=== PATIENT | female | born 1940 | race Two or more races ===

== ENCOUNTER 2019-01-23 08:30 | Day surgery (SDC) | payer OTHER | END 2019-01-23 12:55 | disposition home or self-care (01) | LOC: AMB-ENDOS 08:30 | DX: K57.30 Diverticulosis of large intestine without perforation or abscess without bleeding (principal); K64.8 Other hemorrhoids ==

== ENCOUNTER 2021-02-17 09:25 | Day surgery (SDC) | payer OTHER ==
[2021-02-17] MEDS ORDERED: RECTICARE30 GM TOP (14:09)
== END 2021-02-17 15:15 | disposition home or self-care (01) ==
LOC: AMB-ENDOS 09:25
PROVIDERS: ATTEND Surgery
DX: K62.89 Other specified diseases of anus and rectum (principal); K64.8 Other hemorrhoids; Z20.822 Contact with and (suspected) exposure to COVID-19